=== PATIENT | female | born 1970 | race Two or more races ===

== ENCOUNTER 2023-07-19 18:35 | Emergency (ER) | payer SELFPAY ==
[~2023-07-19] VITALS: Ht 167.6 cm; Wt 86.4 kg
[2023-07-19] MEDS ORDERED: LABE200T83 PO (18:49)
[2023-07-19] MEDS ORDERED: TRAZ-257 PO (18:49)
[2023-07-19] MEDS ORDERED: ROPI0.5T37 PO (18:49)
[2023-07-19] MEDS ORDERED: GENT30CR TP (18:49)
[2023-07-19] MEDS ORDERED: POLY10DR5 OU (18:49)
[2023-07-19 19:16] LABS: GLUCOMETER DEV NAME(LOC) ERT.5
[2023-07-19 20:19] LABS: BASOPHILS % (AUTO) 0.3 % (0.0-2.0); EOSINOPHILS % (AUTO) 3.8 % (1.0-6.0); HEMATOCRIT 31.7 % (36-46); HEMOGLOBIN 10.2 g/dL (12.0-16.0); LYMPHOCYTES # (AUTO) 1.4 K/uL (1.0-4.8); LYMPHOCYTES % (AUTO) 21.6 % (22.0-44.0); MEAN CORPUSCULAR HEMOGLOBIN 31.8 pg (26.0-34.0); MEAN CORPUSCULAR HGB CONC 32.3 G/dL (31.0-37.0); MEAN CORPUSCULAR VOLUME 99 fL (80-100); MONOCYTES # (AUTO) 0.4 K/uL (0.1-1.0); MONOCYTES % (AUTO) 6.1 % (2.0-9.0); NEUTROPHILS # (AUTO) 4.4 K/uL (1.8-7.7); NEUTROPHILS % (AUTO) 68.2 % (40.0-70.0); PLATELET COUNT (AUTO) 194 K/uL (150-450); RED BLOOD CELL COUNT(AUTO) 3.22 MIL/uL (4.00-5.20); RED CELL DISTRIBUTION WIDTH 13.9 % (11.5-14.5)
[2023-07-19 20:30] LABS: CALCIUM, TOTAL 8.1 mg/dL (8.8-10.5); CREATININE 12.35 mg/dL (0.60-1.30); POTASSIUM 5.2 mmol/L (3.5-5.1)
[2023-07-19 20:37] LABS: ALBUMIN 3.2 g/dL (3.4-5.0); BILIRUBIN,TOTAL 0.5 mg/dL (0.1-1.0); MAGNESIUM 2.5 mg/dL (1.80-2.40); TOTAL PROTEIN, SERUM 6.8 g/dL (6.4-8.2)
[2023-07-19] MEDS ORDERED: SODIUM POLYSTYRENE SULFONATE 15 GM/60 ML SUSPENSION BOTTLE PO ONE (20:45)
[2023-07-19 20:53] VITALS: BP 131/73; PULSE 67; RESP 18; TEMP 97.3
== END 2023-07-19 20:55 | disposition home or self-care (01) ==
LOC: EMS 18:35
DX: E87.5 Hyperkalemia (principal); I12.0 Hypertensive chronic kidney disease with stage 5 chronic kidney disease or end stage renal disease; E09.22 Drug or chemical induced diabetes mellitus with diabetic chronic kidney disease; N18.6 End stage renal disease; Z91.158 Patient's noncompliance with renal dialysis for other reason; Z98.890 Other specified postprocedural states
CPT/HCPCS: 80053; 82962; 83735; 85025; 93005; 99284